=== PATIENT | male | born 2000 | race Two or more races ===

== ENCOUNTER 2025-06-13 13:32 | Emergency (ER) | payer MEDICAID, SELFPAY ==
--- NOTE | 2025-06-13 14:00 | XR_ITS ---
Examination: Ribs, left, with PA chest, 5 views Technique: Chest PA, RIBS AP, RPO, LPO, AP coned lower ribs 5 views Exam date and time: June 13, 2025 1404 hours INDICATIONS: Sudden onset left shoulder and rib pain today Findings: Normal heart size. Lungs are clear. No pneumothorax. No acute rib fractures IMPRESSION: No active disease in the chest
--- NOTE | 2025-06-13 14:01 | EDNOTE_ITS ---
ED Back Injury Pain RME/HPI General Chief Complaint: Back Pain/Injury Stated Complaint: L SHOULDER BLADE PAIN W/BREATHING Time Seen by Provider: 06/13/25 13:48 Source: patient Arrival date/time: 06/13/25 13:32 Mode of arrival: ambulatory Limitations: no limitations Related Data Allergies Allergy/AdvReac Type Severity Reaction Status Date / Time NKA* Allergy Uncoded 06/13/25 13:34 Review of Systems Review of Systems Systems Reviewed: All systems reviewed, normal except as documented Constitutional Constitutional: Reports system reviewed and no additional complaints, except as documented, Denies fatigue, Denies fever(s), Denies headache(s) and Denies weakness Eyes Eyes: Reports system reviewed and no additional complaints, except as documented, Denies blurry vision and Denies change in vision ENT Ears, Nose, Mouth, and Throat: Reports system reviewed and no additional complaints, except as documented, Denies otalgia, Denies headache(s), Denies nasal congestion, Denies throat swelling and Denies vertigo Cardiovascular Cardiovascular: Reports system reviewed and no additional complaints, except as documented, Denies chest pain, Denies dyspnea and Denies dyspnea on exertion Respiratory Respiratory: Reports system reviewed and no additional complaints, except as documented, Denies chest congestion, Denies cough, Denies dyspnea, Denies dyspnea on exertion and Denies wheezing Gastrointestinal Gastrointestinal: Reports system reviewed and no additional complaints, except as documented, Denies abdominal pain, Denies cramping, Denies nausea and Denies vomiting Genitourinary Genitourinary: Reports system reviewed and no additional complaints, except as documented, Denies dysuria and Denies hematuria Musculoskeletal Musculoskeletal: Reports system reviewed and no additional complaints, except as documented, Reports arthralgias, Denies back pain and Reports joint swelling Integumentary/Breasts Skin/Breast: Reports system reviewed and no additional complaints, except as documented and Denies wounds Neurologic Neurologic: Reports system reviewed and no additional complaints, except as documented, Denies confusion, Denies headache(s), Denies lack of coordination, Denies vertigo and Denies weakness Psychiatric Psychiatric: Reports system reviewed and no additional complaints, except as documented, Denies anxiety, Denies confusion, Denies depression, Denies paranoia, Denies suicidal ideation and Denies tactile hallucinations Endocrine Endocrine: Reports system reviewed and no additional complaints, except as documented and Denies fatigue Hematologic/Lymphatic Hematologic/Lymphatic: Reports system reviewed and no additional complaints, except as documented and Denies lymphadenopathy Allergic/Immunologic Allergic/Immunologic: Reports system reviewed and no additional complaints, except as documented, Denies throat swelling, Denies urticaria and Denies wheezing ED Exam General Limitations: Present no limitations General appearance: Present alert and in no apparent distress Head Head exam: Present atraumatic Eye Eye exam: Present normal appearance, PERRL and EOMI ENT ENT exam: Present normal exam, normal oropharynx and mucous membranes moist Neck Neck exam: Present normal inspection, full ROM and trachea midline Chest Chest inspection: Present normal inspection and symmetric chest wall rise Respiratory Respiratory exam: Present normal lung sounds bilaterally; Absent respiratory distress, wheezes, stridor, accessory muscle use or prolonged expiratory phase Cardiovascular Cardiovascular exam: Present regular rate, normal rhythm and normal heart sounds Abdominal Exam Abdominal exam: Present soft and normal bowel sounds; Absent tenderness Extremities Exam Extremities exam: Present normal inspection and full ROM Back Exam Back exam: Present normal inspection and full ROM Neurological Exam Neurological exam: Present alert, oriented X3 and CN II-XII intact Psychiatric Psychiatric exam: Present normal affect and normal mood Skin Skin exam: Present warm, dry, intact and normal color Course Quality Measures none Orders Category Date Time Status XR ribs LT min 3V w CXR1V Stat Exams 06/13/25 14:00 Completed XR scapula BI Stat Exams 06/13/25 14:01 Completed Vital Signs Vital signs: Vital Signs Temperature 98.1 F 06/13/25 14:04 Pulse Rate 89 06/13/25 14:04 Respiratory Rate 18 06/13/25 14:04 Blood Pressure 119/81 06/13/25 14:04 Pulse Oximetry (%) 99 06/13/25 14:04 Oxygen Delivery Method Room Air 06/13/25 14:04 Back Pain / Injury MDM Narrative MDM Narrative:: 24-year-old male with no known medical history presents to the emergency room with a chief complaint of left shoulder blade pain when taking deep breaths x 1 day Patient is hemodynamically stable and in no apparent distress Physical examination shows clear bilateral lung sounds. Patient is complaining of pain over his left scapula and pain when taking a deep breath. X-rays of his ribs were completed and were negative for any acute findings. X-ray of the scapula was negative for any acute findings Patient was discharged and educated to follow-up with primary care provider in the next 24 to 48 hours and return to the emergency room for any evidence of worsening signs or symptoms Patient data External records reviewed:: [facility] previous records Clinical information provided by:: patient Social determinants that could affect healthcare access:: none Patient has the following chronic illnesses:: No chronic illness How is presenting disease/condition affected by chronic disease/condition?: no chronic disease Evaluation data The following diagnostics were reviewed and interpreted by me:: lab results and radiology exam(s) Lab and/or radiology exams considered but not ordered:: Labs radiology exams considered and ordered Interpretation Summary: X-ray scapula-FINDINGS: No shoulder fractures or dislocations No foreign bodies IMPRESSION: No shoulder fractures or dislocations X-ray ribs-Findings: Normal heart size. Lungs are clear. No pneumothorax. No acute rib fractures IMPRESSION: No active disease in the chest Medications / Prescriptions Medications or Prescriptions considered but not ordered:: No medication given Medication administrations:: No medication given Consultations Consultation(s) initiated? (list below): No Diagnosis Differential diagnosis back pain/injury: sciatica, strain of lumbar region, thoracic back pain and discitis Most likely diagnosis given after review of the tests above:: Thoracic back pain Admission Indicated Admission indicated?: not indicated Admission Request Was there a request for admission?: No Disposition Plan Disposition Plan: Discharge Discharge Attestation Discharge Attestation: The patient and all family members were given an opportunity to ask questions and understood the discharge instructions. Discharge instructions specifically effects, indications for sooner follow up or return to the emergency department, and the expected course of current diagnosis. Patient condition: Stable Discharge Plan Plan Patient Disposition: HOME (Self Care) Discharge Disposition comment: Stable Prescriptions/Referrals Referrals: No Primary/Family,Physician [Primary Care Provider] - In 1 week Problem List Clinical Impression: Thoracic back pain Patient/Caregiver Discharge Instructions Education Materials: ED Back Pain (Acute or Chronic) Additional Instructions: Please follow-up with your primary care provider in the next 24 to 48 hours X-rays were negative for any acute findings For any evidence of worsening signs or symptoms return to the emergency room immediately Print Language: [place] Stand Alone Forms: Nina Award Info., Patient Portal Info Letter PA/EMILY Supervising Physician CIARRA/EMILY Supervising Physician: Dr. Finney
--- NOTE | 2025-06-13 14:01 | XR_ITS ---
Examination: Bilateral scapular 4 views TECHNIQUE: AP internal rotation Y-view right and left scapular 4 views Date and time: June 13, 2025 1414 hours INDICATIONS: Sudden onset shoulder pain today. FINDINGS: No shoulder fractures or dislocations No foreign bodies IMPRESSION: No shoulder fractures or dislocations
[2025-06-13 14:04] VITALS: BP 119/81; PULSE 89; RESP 18; TEMP 36.7; O2SAT 99; BMI 26.6
== END 2025-06-13 15:12 | disposition home or self-care (01) ==
PROVIDERS: Emergency Provider Nurse Practitioner Family
DX: M89.8X1 Other specified disorders of bone, shoulder (principal); M54.6 Pain in thoracic spine
CPT/HCPCS: 71101; 73010; 99283